=== PATIENT | female | born 1990 | race Caucasian/White ===

== ENCOUNTER 2023-04-23 16:24 | Emergency (ER) | payer MEDICAID, OTHER, SELFPAY ==
--- NOTE | ~2023-04-23 | XR_ITS ---
Examination: Pelvis and lumbar spine CLINICAL INDICATION: Pain. COMPARISON: None. TECHNIQUE: Pelvis AP one view. Allograft lumbar spine 3 views.. FINDINGS: Pelvis: There is normal symmetrical bilateral hip joints and SI joints. The joint space is maintained bilaterally. No loose bodies or bony erosive changes seen. The pelvic bones are normal. There is an IUD in the pelvis. The soft tissues are normal. XR/XR lumbar spine 2-3V IMPRESSION: 1. Unremarkable lumbar spine exam. 2. IUD in the pelvis. No visible acute fracture or dislocation seen.
--- NOTE | ~2023-04-23 | XR_ITS ---
Examination: Pelvis and lumbar spine CLINICAL INDICATION: Pain. COMPARISON: None. TECHNIQUE: Pelvis AP one view. Allograft lumbar spine 3 views.. FINDINGS: Pelvis: There is normal symmetrical bilateral hip joints and SI joints. The joint space is maintained bilaterally. No loose bodies or bony erosive changes seen. The pelvic bones are normal. There is an IUD in the pelvis. The soft tissues are normal. XR/XR pelvis 1-2V IMPRESSION: 1. Unremarkable lumbar spine exam. 2. IUD in the pelvis. No visible acute fracture or dislocation seen.
[2023-04-23 17:04] VITALS: BP 137/81; PULSE 71; RESP 18; TEMP 36.6; O2SAT 100; BMI 25.4
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
--- OUTSIDE RECORDS SUMMARY | 2023-04-23 19:35 | XMS_ITS | Continuity of Care Document ---
Author Name Unknown [facility] Address [address] [place] [address], [address] [address]- Care Team Providers Care Paper Steamer Name Role Phone Not on Staff, PCP Primary Care Physician Unavail able Encounter [facility] Date(s): 03/22/22 - [facility] [address] [place], [place] [address] Attending Physician: [id number] Admitting Physician: Admtr [id number] Referring Physician: Admtr, [id number] Patient Care team information Care Team Personnel Name: Not on Staff, PCP Position: S Physician (General Medicine) Member Role: PCP
[2023-04-23 20:24] VITALS: BP 134/82; PULSE 70; RESP 18; TEMP 36.6; O2SAT 98
[2023-04-23] MEDS: Ketorolac Tromethamine 30 MG/ML VIAL IM (21:51)
== END 2023-04-23 21:55 | disposition home or self-care (01) ==
PROVIDERS: Emergency Provider Emergency Medicine
DX: M54.50 Low back pain, unspecified (principal); G89.29 Other chronic pain
CPT/HCPCS: 72100; 72170; 96372; 99283; 99284; J1885

== ENCOUNTER 2024-07-02 15:44 | Emergency (ER) | payer MEDICAID, OTHER, SELFPAY ==
[2024-07-02 16:27] VITALS: BP 107/60; PULSE 68; RESP 18; TEMP 36.7; O2SAT 99; BMI 28.7
== END 2024-07-02 22:12 | disposition left against medical advice (07) ==
PROVIDERS: Emergency Provider Emergency Medicine
DX: R51.9 Headache, unspecified (principal); R10.10 Upper abdominal pain, unspecified; Z53.21 Procedure and treatment not carried out due to patient leaving prior to being seen by health care provider
CPT/HCPCS: 99281